=== PATIENT | female | born 2000 | race Caucasian/White ===

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

== ENCOUNTER 2018-01-05 21:01 | Emergency (ER) | payer BC ==
[2018-01-05] MEDS ORDERED: Zithromax 250 MG TABLET PO ONE (21:22)
[2018-01-05] MEDS ORDERED: Phenergan 25 MG INJ IM ONE (21:23)
[2018-01-05] MEDS ORDERED: TORAdol 30 mg Injection IM ONE (21:23)
--- NOTE | 2018-01-05 21:26 | ERPHSYRPT ---
- History of Present Illness Time Seen by Provider: 01/05/18 21:16 Historian: patient Exam Limitations: no limitations Physician History: FOR ABOUT THE PAST 13 HOURS PT HAS HAD AN OCCIPITAL HEADACHE RADIATING TO THE FOREHEAD WHICH IS DIFFERENT FROM HER USUAL MIGRAINE HEADACHES SHE HAS HAD FOR THE PAST 6 YEARS 4-5X/WEEK. PT STATES SHE HAS NEVER HAD A HEAD CT SCAN. PT ALSO C/O NAUSEA AND OCCASIONAL DIZZINESS(DISEQUILIBRIUM) TODAY. PT DENIES CHEST PAIN , ABDOMINAL PAIN, NUMBNESS, WEAKNESS. Allergies/Adverse Reactions: acetaminophen [From Lortab] Allergy (Verified 11/24/17 15:03) cephalexin [From Keflex] Allergy (Verified 11/24/17 15:03) Swelling hydrocodone bitartrate [From Lortab] Allergy (Verified 11/24/17 15:03) HAD REACTION A CHILD-HAS TAKEN SINCE THEN WITH NO PROBLEMS Home Medications: Etonogestrel [Nexplanon] 68 mg SQ UD 11/24/17 [History] Hx Tetanus, Diphtheria Vaccination/Date Given: Yes Hx Influenza Vaccination/Date Given: Yes Hx Pneumococcal Vaccination/Date Given: No - Review of Systems Constitutional: No Weakness Respiratory: No Dyspnea Cardiac: No Chest Pain Abdominal/Gastrointestinal: Nausea, No Abdominal Pain Neurological: Dizziness, Headache, No Sensory Changes All Other Systems: Reviewed and Negative - Past Medical History Pertinent Past Medical History: Yes Cardiac History: Hypertension Endocrine Medical History: Diabetes Type II - Past Surgical History Past Surgical History: Yes Other Surgical History: wisdom teeth - Social History Smoking Status: Current every day smoker How long have you smoked: 3 Exposure to second hand smoke: Yes Drug Use: none Patient Lives Alone: No - Female History Hx Now: (UNKNOWN) - Nursing Vital Signs Nursing Vital Signs: Initial Vital Signs Temperature 98.4 F 01/05/18 21:28 Pulse Rate 111 H 01/05/18 21:28 Respiratory Rate 18 01/05/18 21:28 Blood Pressure 176/117 01/05/18 21:28 O2 Sat by Pulse Oximetry 98 01/05/18 21:28 Pain Scale Pain Intensity 7 - Physical Exam General Appearance: alert Eye Exam: PERRL/EOMI Ears, Nose, Throat Exam: moist mucous membranes, pharyngeal erythema, other ( NASAL TURBINATES ERYTHEMATOUS AND MINIMALLY EDEMATOUS; TM'S ERYTHEMATOUS.) Neck Exam: normal inspection, full range of motion Respiratory Exam: normal breath sounds, lungs clear Cardiovascular Exam: normal heart sounds Gastrointestinal/Abdomen Exam: soft, normal bowel sounds Back Exam: normal range of motion Extremity Exam: normal inspection, normal range of motion, No pedal edema Neurologic Exam: alert, cooperative, normal mood/affect, sensation nml, other ( NO BABINSKI PRESENT), No motor deficits, No motor weakness Skin Exam: warm, dry - Course Nursing assessment & vital signs reviewed: Yes - CT Exams Head CT Interpretation: Tele-radiologist Report (NO ACUTE INTRACRANIAL FINDINGS.) Ordered Tests: Active Orders 24 hr Category Date Time Status HEAD WITHOUT CONTRAST [CT] Stat Exams 01/05/18 21:22 Taken CULTURE,URINE Stat Lab 01/05/18 21:45 Received HCG,QUALITATIVE URINE Stat Lab 01/05/18 21:45 Completed UA W/ MICROSCOPIC Stat Lab 01/05/18 21:45 Completed Medication Summary Discontinued Medications Generic Name Dose Route Start Last Admin Trade Name Freq PRN Reason Stop Dose Admin Azithromycin 500 mg 01/05/18 21:22 01/05/18 21:43 Zithromax 250 Mg Tablet PO 01/05/18 21:23 500 mg STAT ONE Administration Azithromycin Confirm 01/05/18 21:36 Zithromax 250 Mg Tablet Administered 01/05/18 21:37 Dose 500 mg .ROUTE .STK-MED ONE Ketorolac Tromethamine 60 mg 01/05/18 21:23 Toradol 30 Mg Injection IM 01/05/18 21:24 STAT ONE Ketorolac Tromethamine Confirm 01/05/18 21:36 Toradol 30 Mg Injection Administered 01/05/18 21:37 Dose 60 mg .ROUTE .STK-MED ONE Promethazine HCl 25 mg 01/05/18 21:23 Phenergan 25 Mg Inj IM 01/05/18 21:24 STAT ONE Promethazine HCl Confirm 01/05/18 21:35 Phenergan 25 Mg Inj Administered 01/05/18 21:36 Dose 25 mg .ROUTE .STK-MED ONE Lab/Rad Data: Laboratory Results 01/05/18 01/05/18 Range/Units 21:45 21:45 Ur Collection Type CCMS Urine Color YELLOW (YELLOW) Urine Appearance SLIGHTLY CLOUDY (CLEAR) Urine pH 7.0 (5-6) Ur Specific [place] 1.015 (1.005-1.025) Urine Protein NEGATIVE (Negative) Urine Ketones NEGATIVE (NEGATIVE) Urine Blood NEGATIVE (0-5) Owen/ul Urine Nitrite NEGATIVE (NEGATIVE) Urine Bilirubin NEGATIVE (NEGATIVE) Urine Urobilinogen NORMAL (0-1) mg/dL Ur Leukocyte Esterase TRACE (NEGATIVE) Urine Microscopic WBC 0-2 (0-5) /HPF Ur Epithelial Cells MANY (FEW) /HPF Amorphous Crystals FEW (NEGATIVE) /HPF Urine Bacteria FEW (NEGATIVE) /HPF Urine Culture Reflexed YES (NO) Urine Glucose NEGATIVE (NEGATIVE) mg/dL Urine HCG, Qual NEGATIVE (Negative) Specimen Received 01-05-182214 - Departure Time of Disposition: 22:52 Departure Disposition: Home Clinical Impression: HEADACHE, BOM, PHARYNGITIS Condition: Stable Critical Care Time: No Referrals: YOHAN BERG [Primary Care Provider] - Instructions: Headache, Adult (DC) Additional Instructions: FOLLOW UP WITH PRIVATE DOCTOR TOMORROW. Prescriptions: Azithromycin 250 mg [Zithromax 250 MG TABLET] 250 mg PO ZPACK #6 tablet
[2018-01-05 21:29] VITALS: BP 176/117; PULSE 111; O2SAT 98
[2018-01-05] MEDS ORDERED: Phenergan 25 MG INJ ONE (21:35)
[2018-01-05] MEDS ORDERED: Zithromax 250 MG TABLET ONE (21:36)
[2018-01-05] MEDS ORDERED: TORAdol 30 mg Injection ONE (21:36)
[2018-01-05 22:16] LABS: Appearance SLIGHTLY CLOUDY (CLEAR); Bilirubin NEGATIVE (NEGATIVE); Blood NEGATIVE Ery/ul (0-5); Glucose NEGATIVE (NEGATIVE); Ketones NEGATIVE (NEGATIVE); Leukocyte Esterase TRACE (NEGATIVE); Nitrite NEGATIVE (NEGATIVE); Protein,Urine Dip NEGATIVE (Negative); Specific Gravity 1.015 (1.005-1.025); Urobilinogen NORMAL mg/dL (0-1)
[2018-01-05 22:17] LABS: Amourphous Crystal FEW /HPF (NEGATIVE); Bacteria FEW /HPF (NEGATIVE); Epithelial Cells MANY /HPF (FEW); WBC 0-2 /HPF (0-5)
--- NOTE | 2018-01-06 09:17 | XRAY ---
Indication: Headache and dizziness. Multiple contiguous axial images obtained through the head without contrast. Comparison: None Normal appearing brain parenchyma, ventricles, and bony calvarium. Visualized paranasal sinuses and mastoid air cells clear. Impression: Normal CT head without contrast exam. Comment: Preliminary interpretation was made by [facility]. No discrepancy. CTDI 49.71
== END 2018-01-05 22:43 | disposition left against medical advice (07) ==
LOC: ED 21:01
DX: R51 Headache (principal); H66.93 Otitis media, unspecified, bilateral; J02.9 Acute pharyngitis, unspecified
CPT/HCPCS: 70450; 81000; 84703; 87086; 99283; J1885; J2550; A9270-GY